=== PATIENT | male | born 2000 | race Caucasian/White ===

== ENCOUNTER 2023-03-15 02:41 | Emergency (ER) | payer BC, SELFPAY ==
[2023-03-15] VITALS (13 sets, daily range): BP systolic 84–122; BP diastolic 35–60; PULSE 91–109; RESP 11–17; TEMP 37.4–37.6; O2SAT 97–99; BMI 21.7
--- NOTE | 2023-03-15 02:52 | ECG_ITS ---
Test Reason : SYNCOPE Blood Pressure : / mmHG Vent. Rate : 099 BPM Atrial Rate : 099 BPM P-R Int : 110 ms QRS Dur : 096 ms QT Int : 308 ms P-R-T Axes : 032 047 051 degrees QTc Int : 395 ms Sinus rhythm with short [place] Incomplete right bundle branch block Borderline ECG No previous ECGs available Referred By: Sherrie Chavez Electronically Signed By:OLIVIA TAVERAS MD
--- NOTE | 2023-03-15 02:57 | ED.GENADULT ---
HPI - General Adult General Chief complaint: Syncope Stated complaint: SYNCOPE Time Seen by Provider: 03/15/23 02:51 Source: patient Mode of arrival: EMS Limitations: no limitations History of Present Illness HPI narrative: patient comes to the emergency room complaining of a syncopal episode. Patient states that approximately 5 hours ago, patient noted that he was having subjective fever, chills and body aches. Patient went to bed. Prior to calling 911, patient was thirsty, walked to the kitchen and when he was trying to get back into bed, patient was feeling lightheaded, called for his housemate who witnessed a syncopal episode. According to the patient, patient slightly hit his head against a rubber mat. patient denies any headache, no neck pain, no lacerations. Patient denies being on blood thinners. Patient states that he has healthy otherwise. patient denies chest pain or shortness of breath. Patient states that throughout the years, patient has had multiple episodes of lightheadedness with standing Related Data Home Medications Medication Instructions Recorded Confirmed No Known Home Meds 09/16/21 09/16/21 Allergies Allergy/AdvReac Type Severity Reaction Status Date / Time cat pelt standardized Allergy Unknown Unknown Verified 09/16/21 15:50 allergenic ex Review of Systems Review of Systems: Constitutional : No Weight loss, subjective fever and chills, No Night Sweats, No Fatigue, No Malaise ENT/Mouth : No Hearing loss, No Ear Pain, No Nasal Congestion, No Sinus Pain, No Hoarseness, No sore throat, No Rhinorrhea, No Swallowing Difficulty Eyes: No Eye Pain, No Swelling, No Redness, No Foreign Body, No Discharge, No Vision Changes Cardiovascular : No Chest Pain, No SOB, No Dyspnea on Exertion, No Orthopnea, No Edema, No Palpitations Respiratory : No Cough, No Sputum, No Wheezing, No Smoke Exposure, No Dyspnea Gastrointestinal : No Nausea, No Vomiting, No Diarrhea, No Constipation, No abdominal Pain, No Hematochezia, No Melena Genitourinary : no irregular bleeding, No Dysuria, No Urinary Frequency, No Hematuria, No Urinary Incontinence, No Urgency, No Flank Pain, No Urinary Flow Changes, No Hesitancy Musculoskeletal : No joint pain, No Myalgias, No Joint Swelling Skin : No Skin Lesions, No rash Neuro : No Weakness, No Numbness, No Paresthesias, Complaining of 1 episode of loss of consciousness, No Dizziness, No Headache Psych : No Anxiety/Panic, No Depression, No SI/HI/AH/VH, No Social Issues, Heme/Lymph: No Bruising, No Bleeding,No Lymphadenopathy Endocrine : No Polyuria, No Polydipsia, No Temperature Intolerance PMF Past Medical History Medical History Left knee pain Rash Physical exam Surgical History No pertinent past surgical history Family History Family History Father No problems noted. Mother No problems noted. Social History Social History (Updated 09/16/21 @ 15:41 by YARON Pedersen) Housing: House Alcohol intake: current Alcohol intake frequency: a few times a week Patient Tobacco Use Status: Never used Tobacco Smoked in Last 30 Days: No e-Cigarette/Vaping Use: Never Used Second Hand Smoke Exposure: No Use of substances other than those prescribed or required for medical reasons: No Advance Directives: No Advance Directives Information Provided: No service: No Current occupational status: employed Current occupation: [employer]. Current occupational exposures/hazards: No Cognitive needs: No Hearing needs: No Vision needs: Yes Physical Exam ED Vital Signs: Vital Signs - 24 hr 03/15/23 02:50 03/15/23 02:52 03/15/23 03:16 Temperature 99.7 F Pulse Rate 93 91 100 Respiratory Rate 11 L Blood Pressure 122/60 96/41 L 95/56 L Pulse Oximetry 98 Oxygen Delivery Method Room Air 03/15/23 03:17 03/15/23 03:31 03/15/23 04:37 Temperature Pulse Rate 102 H 94 Respiratory Rate Blood Pressure 85/49 L 103/35 L Pulse Oximetry 98 Oxygen Delivery Method Room Air 03/15/23 04:41 03/15/23 04:42 03/15/23 05:52 Temperature Pulse Rate 101 H 109 H 98 Respiratory Rate Blood Pressure 97/52 L 84/40 L 96/36 L Pulse Oximetry Oxygen Delivery Method 03/15/23 05:53 03/15/23 05:55 Temperature Pulse Rate 103 H 103 H Respiratory Rate Blood Pressure 111/54 L 94/49 L Pulse Oximetry Oxygen Delivery Method BMI result Body Mass Index 21.7 Const Other: Appearance: Alert. Oriented X3. No acute distress. Eyes: Pupils equal, round and reactive to light. ENT: Pharynx normal. Neck: Normal inspection. Neck supple. No lymph nodes noted. No crepitus CVS: Normal heart rate and rhythm. Pulses normal. Normal S1 and S2 Respiratory: No respiratory distress. Breath sounds normal. No Wheezing. No rales Abdomen: Soft and nontender. No rigidity. No distention. Skin: Skin warm and dry. Normal skin color. Normal skin turgor. Extremities: No lower extremity edema. No Lacerations. No Rash Neuro: Oriented X 3. No motor deficit. No sensory deficit. Moving all extremities. No slurred speech. CN 2 through 12 grossly intact Psych: calm, cooperative, normal affect Course Course Course Narrative: - All of patient's labs pending - EKG pending Medications Administered Discontinued Medications Generic Name Dose Route Start Last Admin Trade Name Freq PRN Reason Stop Dose Admin Sodium Chloride 1,000 mls @ 999 mls/hr 03/15/23 03:21 03/15/23 04:37 Ns IVCONT 03/15/23 04:21 Infused .Q1H1M ONE Infusion Medical Decision Making Medical Decision Making [facility] Narrative: - when ED techs were doing orthostatic vitals, patient's blood pressure dropped systolic from 95-85, patient felt significantly lightheaded. - Patient receiving IV fluids -after IV fluids, patient's orthostatics were recheck, patient's orthostatic vitals were positive again. Patient receiving more fluids. -after the 2nd bag of IV fluids, orthostatics were checked, this time negative, patient asymptomatic. -discussed with the patient to stand up slowly and stay well hydrated at all times. Patient will follow-up with his primary care physician Differential Diagnosis Differential Diagnoses: The differential diagnosis associated with the presentation includes (Orthostatic hypotension, dehydration, pots) Admission/Observation Consideration of admission/observation: Escalation of care including admission/observation considered (Given patient's blood pressure dropped despite IV fluids, admission was considered) Consult Healthcare Provider Management of the patient was discussed with: Hospitalist Lab Data [facility] Lab Attestation statement: I reviewed the patient's lab results. 03/15/23 03:26 03/15/23 03:26 Labs: Lab Results 03/15/23 03/15/23 03/15/23 Range/Units 03:24 03:26 05:30 WBC 15.6 H (4.8-10.8) X10*3/uL RBC 4.98 (4.60-5.80) X10*6/uL Hgb 15.3 (14.0-18.0) g/dl Hct 44.9 (42.0-52.0) % MCV 90.2 (80.0-98.0) fL MCH 30.7 (27.0-33.0) pg MCHC 34.1 (31.0-36.0) g/dl RDW 12.0 (11.0-16.0) % Plt Count 205 (160-400) X10*3/uL MPV 10.9 (9.4-12.4) fL Immature Gran % (Auto) 0.3 (0.0-0.4) % Neut % (Auto) 89.9 H (45-73) % Lymph % (Auto) 4.0 L (20-40) % [place] % (Auto) 5.5 (2-11) % Eos % (Auto) 0.1 (0-4) % Baso % (Auto) 0.2 (0-2) % Lymph # (Auto) 0.6 L (1.2-4.9) X10*3/uL [place] # (Auto) 0.9 (0.1-1.2) X10*3/uL Eos # (Auto) 0.0 (0.0-0.4) X10*3/uL Baso # (Auto) 0.0 (0.0-0.2) X10*3/uL Abs Immat Gran (auto) 0.05 H (0.00-0.03) X10*3/uL Absolute Neuts (auto) 14.0 H (2.0-8.3) x10*3/uL Absolute Nucleated RBC 0.000 (0.0-0.012) X10*3/uL Nucleated RBC % (auto) 0.0 (0.0-0.2) /100WBC D-Dimer High Sensitivty < 150 NG/ML Sodium 138 (135-145) mmol/L Potassium 3.6 (3.3-5.1) mmol/L Chloride 102 (96-108) mmol/L Carbon Dioxide 28 (22-29) mmol/L Anion Gap 12 (12-20) BUN 11 (9-16) mg/dL Creatinine 0.99 (0.5-1.4) mg/dL Estim Creat Clear Calc 115.8 Estimated GFR > 60 Random Glucose 137 H (60-115) mg/dL Calcium 9.1 (8.4-10.2) mg/dL Total Bilirubin 1.4 H (0.0-1.0) mg/dL Direct Bilirubin 0.4 (0.0-0.5) mg/dL AST 14 (5-37) U/L ALT 16 (0-40) U/L Alkaline Phosphatase 47 (39-117) U/L Troponin I High Sens < 2.7 (<3.5-35.0) ng/L Total Protein 6.6 (6.5-8.0) g/dL Albumin 4.3 (3.5-5.0) g/dL Urine Opiates Screen Not Detected (Not Detect) Urine Fentanyl Screen Not Detected (Not Detect) Ur Barbiturates Screen Not Detected (Not Detect) Ur Phencyclidine Scrn Not Detected (Not Detect) Ur Amphetamines Screen Not Detected (Not Detect) U Benzodiazepines Scrn Not Detected (Not Detect) Urine Cocaine Screen Not Detected (Not Detect) U Marijuana (THC) Screen Not Detected (Not Detect) Ethyl Alcohol < 10 mg/dL COVID-19 (ALEXUS) Negative (Negative) COVID-19 Clin Com See Note Influenza Type A (SACHIN) Negative (Negative) Influenza Type B (SACHIN) Negative (Negative) Influenza A & B Note See Note Critical Care Time Critical Care Time Critical Care Time: Yes Total Critical Care Time: 60 Attestation: I have personally provided critical care time. Time includes review of lab data, radiology results, discussion with consultants, and monitoring for potential decompensation. Intervention performed as documented. Discharge Plan Discharge Clinical Impression: Orthostatic hypotension, Acute dehydration Patient Disposition: Home, Self-Care Instructions: Syncope (ED), Hypotension (ED) Additional Instructions: Please follow-up with your primary care physician tomorrow. If you have any worsening or new symptoms, please return to the emergency room or call 911 Prescriptions: No Action No Known Home Meds Referrals: Bin Miramontes MD [Physician] - 03/16/23
[2023-03-15] MEDS: 0.9 % Sodium Chloride 1,000 ML 999 ML IVCONT (03:35)
[2023-03-15 03:38] LABS: MANUAL DIFF FLAG NO
[2023-03-15 03:40] LABS: Basophils Percent Auto 0.2 % (0-2); Eosinophils Percent Auto 0.1 % (0-4); Hematocrit 44.9 % (42.0-52.0); Hemoglobin 15.3 g/dl (14.0-18.0); Imm Gran Abs Auto 0.05 X10*3/uL (0.00-0.03); Imm Gran Pct Auto 0.3 % (0.0-0.4); Lymphocytes Absolute Auto 0.6 X10*3/uL (1.2-4.9); Mean Corpuscular HGB Conc 34.1 g/dl (31.0-36.0); Mean Corpuscular Hemoglobin 30.7 pg (27.0-33.0); Mean Corpuscular Volume 90.2 fL (80.0-98.0); Mean Platelet Volume 10.9 fL (9.4-12.4); Monocytes Absolute Auto 0.9 X10*3/uL (0.1-1.2); Monocytes Percent Auto 5.5 % (2-11); Neutrophils Percent Auto 89.9 % (45-73); Platelet Count 205 X10*3/uL (160-400); Red Blood Count 4.98 X10*6/uL (4.60-5.80); White Blood Count 15.6 X10*3/uL (4.8-10.8)
[2023-03-15 03:49] LABS: D Dimer High Sensitivity < 150 NG/ML
[2023-03-15 03:57] LABS: Alanine Aminotransferase 16 U/L (0-40); Albumin Level 4.3 g/dL (3.5-5.0); Alkaline Phosphatase 47 U/L (39-117); Anion Gap 12 (12-20); Aspartate Amino Transferase 14 U/L (5-37); Bilirubin Direct 0.4 mg/dL (0.0-0.5); Bilirubin Total 1.4 mg/dL (0.0-1.0); Blood Urea Nitrogen 11 mg/dL (9-16); Calcium 9.1 mg/dL (8.4-10.2); Carbon Dioxide 28 mmol/L (22-29); Chloride 102 mmol/L (96-108); Creatinine Clr Calc Pharmacy 115.8; Estimated Glomerular Filt Rate > 60; Ethanol < 10 mg/dL; Glucose Random 137 mg/dL (60-115); Potassium 3.6 mmol/L (3.3-5.1); Sodium 138 mmol/L (135-145); Total Protein 6.6 g/dL (6.5-8.0)
[2023-03-15 03:59] LABS: Troponin-I High Sensitivity < 2.7 ng/L (<3.5-35.0)
[2023-03-15 04:00] LABS: COVID-19 Test Negative (Negative); IDNOW Serial# BCCEAD1C
[2023-03-15 04:00] LABS: IDNOW Serial# 08D9AD1C; Influenza A Negative (Negative); Influenza B2 Negative (Negative)
--- NOTE | 2023-03-15 05:44 | PC.NURSE ---
pt walked to the bathroom to provide urine. p changed position slowly. pt denied lightheaded/dizziness at this time. gait was steady and even.
[2023-03-15 05:47] LABS: Amphetamine Screen Urine Not Detected (Not Detect); Barbiturates, Urine Not Detected (Not Detect); Benzodiazepines Screen Urine Not Detected (Not Detect); Cannabinoid Screen Urine Not Detected (Not Detect); Cocaine Screen Urine Not Detected (Not Detect); Fentanyl, urine Not Detected (Not Detect); Opiate Screen Urine Not Detected (Not Detect); Phencyclidine Screen Urine Not Detected (Not Detect)
== END 2023-03-15 06:13 | disposition home or self-care (01) ==
PROVIDERS: Emergency Provider Emergency Medicine
DX: I95.1 Orthostatic hypotension (principal); E86.0 Dehydration; R50.9 Fever, unspecified; Z11.52 Encounter for screening for COVID-19
CPT/HCPCS: 36415; 80048; 80076; 80307; 84484; 85025; 85379; 87502; 87635; 93005; 96360; 99284; 99285

== ENCOUNTER 2023-03-31 13:44 | Outpatient (AMB) | payer BC, SELFPAY ==
[2023-03-31 13:47] VITALS: BP 118/76; PULSE 82; BMI 21.2
--- NOTE | 2023-03-31 13:47 | MHC.OFFVIS ---
Intake Vital Signs 03/31/23 13:47 03/31/23 14:06 03/31/23 14:07 03/31/23 14:07 Height 5 ft 10 in Weight 147 lb 11.355 oz BMI 21.2 BP 118/76 118/64 116/62 116/64 Blood Pressure Location Lt brachial Position Sitting Supine Sitting Standing Pulse 82 71 107 H 96 Intake Visit Reasons: [employer]/[facility] ER/(HS)/hypotension Intake Note: New patient from the ED hypotension patient had a virus after 2 liters of fluid bp was better and patient felt better [employer] Required: No Allergies cat pelt standardized allergenic ex Allergy (Unknown, Verified 03/31/23 14:08) Unknown Medication List - Last Reconciled 03/31/23 by Sharon Vlaadez NP No Known Home Meds HPI HPI Comments History of Present Illness Details 23-year-old male presents today as he was referred to us for a syncopal episode in the setting of dehydration and being ill. He reports this is the only time it has happened. He denies palpitations, headaches, shortness of breath, dizziness, or chest discomfort. In he emergency room he was found to have orthostatic hypotension. On exam today he was not orthostatic. He reports he is doing well. Has no significant medical or family history,. [facility] Medical History Left knee pain Rash Physical exam Surgical History No pertinent past surgical history Family History Father No problems noted. Mother No problems noted. Social History Housing: House Alcohol intake: current Alcohol intake frequency: a few times a week Patient Tobacco Use Status: Never used Tobacco e-Cigarette/Vaping Use: Never Used Second Hand Smoke Exposure: No service: No Current occupational status: employed Current occupation: [employer]. Current occupational exposures/hazards: No Cognitive needs: No Hearing needs: No Vision needs: Yes Review of Systems Const Denies chills, Denies daytime sleepiness, Denies fatigue, Denies fever(s), Denies frequent falls, Denies poor appetite, Denies snoring, Denies stops breathing during sleep, Denies weakness, Denies weight gain and Denies weight loss Eyes Denies loss of vision ENT Denies dizziness and Denies hearing loss Card Denies chest pain, Denies claudication, Denies leg edema, Denies lightheadedness, Denies palpitations, Denies dyspnea, Denies dyspnea on exertion and Denies orthopnea Resp Denies cough, Denies excessive phlegm production, Denies dyspnea, Denies dyspnea on exertion, Denies snoring and Denies wheezing GI Denies abdominal pain, Denies hematochezia, Denies change in bowel habits, Denies nausea and Denies vomiting Denies dysuria and Denies urinary frequency Musc Denies arthralgias, Denies muscle weakness, Denies numbness and Denies other (frequent falls) Skin/Breast Denies nail changes and Denies rash Neuro Denies Abnormal speech present, Denies dizziness, Denies frequent falls, Denies loss of vision, Denies memory loss, Denies numbness and Denies weakness Psych Denies depression and Denies memory loss Endo Denies fatigue and Denies palpitations Elmo/Lymph Reports easy bruising and Reports other (anemia) Aller/Immun Denies wheezing Physical Exam Vital Signs: Last Vital Signs Pulse 82 03/31/23 13:47 BP 118/76 03/31/23 13:47 BMI result Body Mass Index 21.2 Const General: healthy appearing and no acute distress Orientation/consciousness: patient oriented x3 HEENT Head: Yes normal to inspection Eyes General: appearance normal, both eyes and all related structures Neck Neck: Yes normal visual inspection Chest Chest palpation & inspection: normal inspection of the chest Resp Effort & Inspection: normal respiratory effort Auscultation: clear to auscultation bilaterally Cardio Jugular venous distension: no JVD Palpation: normal PMI Rate: regular rate Rhythm: regular rhythm Heart sounds: S1 normal heart sound present, S2 normal heart sound present, no click, no gallops, no murmurs and no rubs GI Inspection: Yes normal to inspection Palpation (GI): Soft to palpation Skin General skin exam: no rashes or lesions noted Neuro General: patient oriented x3 Speech: No Abnormal speech present Extrem General: Yes normal to inspection Psych Appearance: grossly normal Assessment & Plan Assessment & Plan (1) Syncope: Code(s): R55 - Syncope and collapse Plan Patient not orthostatic on exam today. No murmurs noted. Continue to hydrate well and eat adequate amounts. Be sure to hydrate well when ill. Follow-up with primary care through [facility]. Return as needed. Adjust from laying, sitting, and standing slowly. Report any new or worsening symptoms. Coding Level of Care Code New Pt Level 3 (25711) Diagnoses Syncope R55
[2023-03-31 14:06] VITALS: BP 118/64; PULSE 71
[2023-03-31 14:07] VITALS: BP 116/62; BP 116/64; PULSE 107; PULSE 96
== END 2023-03-31 14:16 | disposition home or self-care (01) ==
PROVIDERS: Visit Provider Nurse Practitioner
DX: R55 Syncope and collapse (principal)
CPT/HCPCS: 99203

== ENCOUNTER → 2023-03-31 13:44 | Outpatient (BNVA) | payer BC, SELFPAY | PROVIDERS: Visit Provider Nurse Practitioner ==

== ENCOUNTER 2023-05-31 22:25 | Emergency (ER) | payer BC, SELFPAY ==
--- NOTE | 2023-05-31 | ECG_ITS ---
Test Reason : DIZZYNESS Blood Pressure : / mmHG Vent. Rate : 102 BPM Atrial Rate : 102 BPM P-R Int : 128 ms QRS Dur : 102 ms QT Int : 322 ms P-R-T Axes : 043 043 049 degrees QTc Int : 419 ms Sinus tachycardia Incomplete right bundle branch block Borderline ECG When compared with ECG of 15-MAR-2023 03:08, No significant change was found Referred By: Generic ED Physician Electronically Signed By:COLLEEN DEUTSCH
[2023-05-31 22:35] VITALS: BP 150/89; PULSE 122
[2023-05-31 22:36] VITALS: BP 120/68; PULSE 108; RESP 16; TEMP 36.6; O2SAT 98; BMI 24.0
[2023-05-31 22:39] VITALS: BP 120/68; PULSE 108; RESP 16; TEMP 36.6; O2SAT 98
[2023-05-31 23:08] LABS: MANUAL DIFF FLAG NO
[2023-05-31 23:09] LABS: Basophils Absolute Auto 0.1 X10*3/uL (0.0-0.2); Basophils Percent Auto 0.4 % (0-2); Eosinophils Absolute Auto 0.1 X10*3/uL (0.0-0.4); Eosinophils Percent Auto 0.6 % (0-4); Hematocrit 44.2 % (42.0-52.0); Hemoglobin 15.3 g/dl (14.0-18.0); Imm Gran Abs Auto 0.02 X10*3/uL (0.00-0.03); Imm Gran Pct Auto 0.2 % (0.0-0.4); Lymphocytes Absolute Auto 1.5 X10*3/uL (1.2-4.9); Lymphocytes Percent Auto 13.3 % (20-40); Mean Corpuscular HGB Conc 34.6 g/dl (31.0-36.0); Mean Corpuscular Hemoglobin 30.9 pg (27.0-33.0); Mean Corpuscular Volume 89.3 fL (80.0-98.0); Mean Platelet Volume 10.4 fL (9.4-12.4); Monocytes Absolute Auto 0.7 X10*3/uL (0.1-1.2); Monocytes Percent Auto 6.4 % (2-11); Neutrophils Absolute Auto 9.1 x10*3/uL (2.0-8.3); Neutrophils Percent Auto 79.1 % (45-73); Platelet Count 229 X10*3/uL (160-400); Red Blood Count 4.95 X10*6/uL (4.60-5.80); Red Cell Distribution Width 12.1 % (11.0-16.0); White Blood Count 11.5 X10*3/uL (4.8-10.8)
--- NOTE | 2023-05-31 23:09 | ED_ITS ---
HPI - General Adult General Chief complaint: Dizziness Stated complaint: rapid heart rate secondary to an edible Time Seen by Provider: 05/31/23 23:07 Source: patient Mode of arrival: ambulatory Limitations: no limitations History of Present Illness HPI narrative: Patient's history of anxiety takes THC edibles almost every other day today he took 15 mg of Ativan which is normal for him within 45 minutes of eating that patient started feeling heart racing and uneasiness no chest pain. When the patient came heart rate was 108. Patient denies any significant anxiety today no history of any other substance abuse patient bought the THC from a dispensary Related Data Home Medications Medication Instructions Recorded Confirmed No Known Home Meds 09/16/21 03/31/23 Allergies Allergy/AdvReac Type Severity Reaction Status Date / Time cat pelt standardized Allergy Unknown Unknown Verified 06/01/23 01:21 allergenic ex Review of Systems 2 Review of Systems: Yes all other systems are reviewed and are negative PMFSH Past Medical History Medical History Left knee pain Rash Physical exam Surgical History No pertinent past surgical history Family History Family History Father No problems noted. Mother No problems noted. Social History Social History Housing: House Alcohol intake: current Alcohol intake frequency: a few times a week Patient Tobacco Use Status: Never used Tobacco Smoked in Last 30 Days: No e-Cigarette/Vaping Use: Never Used Second Hand Smoke Exposure: No Use of substances other than those prescribed or required for medical reasons: Yes Substance Use Type: Marijuana Advance Directives: No Advance Directives Information Provided: No service: No Current occupational status: employed Current occupation: [employer]. Current occupational exposures/hazards: No Cognitive needs: No Hearing needs: No Vision needs: Yes Physical Exam ED Vital Signs: Vital Signs - 24 hr 05/31/23 22:36 05/31/23 22:39 Temperature 98 F 98 F Pulse Rate 108 H 108 H Respiratory Rate 16 16 Blood Pressure 120/68 120/68 Pulse Oximetry 98 98 Oxygen Delivery Method Room Air BMI result Body Mass Index 24.0 Appearance: Alert. Oriented X3. No acute distress. Eyes: PERRLA, No Nystagmus ENT: Pharynx normal. Oral Mucosa moist Neck: Normal inspection. Neck supple. CVS: Normal heart rate and rhythm. Pulses normal. Respiratory: No respiratory distress. Equal air entry bilateral, Abdomen: Soft and nontender. Bowel sounds are present, Skin: Skin warm and dry. Normal skin color. Normal skin turgor. Extremities: No lower extremity edema. No calf tenderness Neuro: Oriented X 3. Medical Decision Making Medical Decision Making [facility] Narrative: Patient drug screening positive for THC only patient feel relaxed likely had anxiety Lab Data [facility] Lab Attestation statement: I reviewed the patient's lab results. 05/31/23 23:04 05/31/23 23:04 Labs: Lab Results 05/31/23 06/01/23 Range/Units 23:04 00:17 WBC 11.5 H (4.8-10.8) X10*3/uL RBC 4.95 (4.60-5.80) X10*6/uL Hgb 15.3 (14.0-18.0) g/dl Hct 44.2 (42.0-52.0) % MCV 89.3 (80.0-98.0) fL MCH 30.9 (27.0-33.0) pg MCHC 34.6 (31.0-36.0) g/dl RDW 12.1 (11.0-16.0) % Plt Count 229 (160-400) X10*3/uL MPV 10.4 (9.4-12.4) fL Immature Gran % (Auto) 0.2 (0.0-0.4) % Neut % (Auto) 79.1 H (45-73) % Lymph % (Auto) 13.3 L (20-40) % [place] % (Auto) 6.4 (2-11) % Eos % (Auto) 0.6 (0-4) % Baso % (Auto) 0.4 (0-2) % Lymph # (Auto) 1.5 (1.2-4.9) X10*3/uL [place] # (Auto) 0.7 (0.1-1.2) X10*3/uL Eos # (Auto) 0.1 (0.0-0.4) X10*3/uL Baso # (Auto) 0.1 (0.0-0.2) X10*3/uL Abs Immat Gran (auto) 0.02 (0.00-0.03) X10*3/uL Absolute Neuts (auto) 9.1 H (2.0-8.3) x10*3/uL Absolute Nucleated RBC 0.000 (0.0-0.012) X10*3/uL Nucleated RBC % (auto) 0.0 (0.0-0.2) /100WBC Sodium 136 (135-145) mmol/L Potassium 4.1 (3.3-5.1) mmol/L Chloride 101 (96-108) mmol/L Carbon Dioxide 28 (22-29) mmol/L Anion Gap 11 L (12-20) BUN 12 (9-16) mg/dL Creatinine 0.94 (0.5-1.4) mg/dL Estim Creat Clear Calc 102.3 Estimated GFR > 60 Random Glucose 153 H (60-115) mg/dL Calcium 9.3 (8.4-10.2) mg/dL Total Bilirubin 0.6 (0.0-1.0) mg/dL AST 14 (5-37) U/L ALT 15 (0-40) U/L Alkaline Phosphatase 47 (39-117) U/L Total Protein 6.8 (6.5-8.0) g/dL Albumin 4.5 (3.5-5.0) g/dL Urine Opiates Screen Not Detected (Not Detect) Urine Fentanyl Screen Not Detected (Not Detect) Ur Barbiturates Screen Not Detected (Not Detect) Ur Phencyclidine Scrn Not Detected (Not Detect) Ur Amphetamines Screen Not Detected (Not Detect) U Benzodiazepines Scrn Not Detected (Not Detect) Urine Cocaine Screen Not Detected (Not Detect) U Marijuana (THC) Screen POSITIVE H (Not Detect) Independent Interpretation I performed an independent interpretation of an: EKG Interpretation: Sinus tachycardia with heart rate of 102 beats per minute incomplete right bundle branch block no acute ST T wave changes no acute ischemia Discharge Plan Discharge Clinical Impression: Anxiety, Mild tetrahydrocannabinol (THC) abuse Patient Disposition: Home, Self-Care Instructions: Cannabis Abuse (ED), Anxiety (ED) Additional Instructions: Rest at home Avoid using cannabis Prescriptions: No Action No Known Home Meds Interventions: ED Discharge Assessment Last Done: 06/01/23 01:20 Discharge Date/Time: 06/01/23 01:21
[2023-05-31 23:24] LABS: Alanine Aminotransferase 15 U/L (0-40); Albumin Level 4.5 g/dL (3.5-5.0); Alkaline Phosphatase 47 U/L (39-117); Anion Gap 11 (12-20); Aspartate Amino Transferase 14 U/L (5-37); Bilirubin Total 0.6 mg/dL (0.0-1.0); Blood Urea Nitrogen 12 mg/dL (9-16); Calcium 9.3 mg/dL (8.4-10.2); Carbon Dioxide 28 mmol/L (22-29); Chloride 101 mmol/L (96-108); Creatinine Clr Calc Pharmacy 102.3; Estimated Glomerular Filt Rate > 60; Glucose Random 153 mg/dL (60-115); Potassium 4.1 mmol/L (3.3-5.1); Sodium 136 mmol/L (135-145); Total Protein 6.8 g/dL (6.5-8.0)
[2023-06-01 00:32] LABS: Amphetamine Screen Urine Not Detected (Not Detect); Barbiturates, Urine Not Detected (Not Detect); Benzodiazepines Screen Urine Not Detected (Not Detect); Cannabinoid Screen Urine POSITIVE (Not Detect); Cocaine Screen Urine Not Detected (Not Detect); Fentanyl, urine Not Detected (Not Detect); Opiate Screen Urine Not Detected (Not Detect); Phencyclidine Screen Urine Not Detected (Not Detect)
== END 2023-06-01 01:21 | disposition home or self-care (01) ==
PROVIDERS: Emergency Provider Internal Medicine; PCP Physician Assistant
DX: F12.180 Cannabis abuse with cannabis-induced anxiety disorder (principal); R42 Dizziness and giddiness; Z79.899 Other long term (current) drug therapy
CPT/HCPCS: 36415; 80053; 80307; 85025; 93005; 99284; 99285

== ENCOUNTER → 2023-05-31 23:11 | Outpatient (BNV) | payer BC, SELFPAY | PROVIDERS: Emergency Provider Internal Medicine; PCP Physician Assistant; Visit Provider Internal Medicine | DX: R00.0 Tachycardia, unspecified (principal) | CPT/HCPCS: 93010 ==